=== PATIENT | female | born 2000 | race Caucasian/White ===

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

== ENCOUNTER 2022-11-12 12:29 | Outpatient (REF) | payer BC, SELFPAY ==
--- NOTE | 2022-11-12 11:30 | PAPFT_PTH ---
PATIENT: Ana Benoit LOC: [facility] U#:[id number] AGE/SX: 22/F ROOM: RE11/12/[address]: Jaclyn Ortiz : 2000 BED: DIS: 11/12/2022 SPEC #: [id number] RECD: 11/13/22 12:51 STATUS: PEPE CONNOR #: [id number] KI: 11/12/22 11:[address]: Jaclyn Michel DEPT: [facility] Cytology RECD BY: Eli Beverly ENTERED: 11/13/22 12:52 SP TYPE: PAPFT OTHR DR: Jagjit Glass Tissues: 1 - CX/ENDOCX FOR PAP SMEARS Procedures: PAP THIN PREP/[facility] Screening Comments: [id number] (CHLAMYDIA/GC)
[2022-11-14 12:27] LABS: Chlamydia Result Negative (Negative); GC Result Negative (Negative)
== END 2022-11-12 12:30 | disposition home or self-care (01) ==
LOC: NCHCN 12:29
PROVIDERS: PCP Family Medicine; Visit Provider Nurse Practitioner Family
DX: Z00.00 Encounter for general adult medical examination without abnormal findings (principal); Z12.4 Encounter for screening for malignant neoplasm of cervix
CPT/HCPCS: 87491; 87591; 88142

== ENCOUNTER 2024-03-09 15:42 | Outpatient (REF) | payer BC, SELFPAY ==
--- NOTE | 2024-03-09 10:40 | PAPFT_PTH ---
PATIENT: Ana Benoit LOC: [facility] U#:[id number] AGE/SX: 23/F ROOM: RE03/09/[address]: Jaclyn Ortiz : 2000 BED: DIS: 03/09/2024 SPEC #: [id number] RECD: 03/09/24 18:13 STATUS: PEPE REQ #: [id number] KI: 03/09/24 10:[address]: Jaclyn Michel DEPT: [facility] Cytology RECD BY: Eli Beverly ENTERED: 03/09/24 18:14 SP TYPE: PAPFT JAIR DR: Jagjit Glass Tissues: 1 - CX/ENDOCX FOR PAP SMEARS Procedures: PAP THIN PREP/[facility] Screening Comments: [id number]
== END 2024-03-09 15:43 | disposition home or self-care (01) ==
LOC: NCHCN 15:42
PROVIDERS: PCP Family Medicine; Visit Provider Nurse Practitioner Family
DX: Z12.4 Encounter for screening for malignant neoplasm of cervix (principal)
CPT/HCPCS: 88142